=== PATIENT | male | born 1970 | race Two or more races ===

== ENCOUNTER 2016-10-23 16:57 | Emergency (ER) | payer OTHER ==
--- NOTE | 2016-10-23 17:43 | ED Physician Chart ---
Chief Complaint/HPI - Patient Information Date Seen:: 10/23/16 Time Seen:: 17:20 Chief Complaint:: dizziness and headache History of Present Illness:: Patient has had dizziness and headache in the morning for the last 2 months. He is diabetic but does not check his blood sugars in the morning. He went to see his private physician today who noticed that the right pupil was larger than the left and suggested he go to an emergency room and possibly have a CAT scan of the head. Patient denies any focal neurological deficit. 2 days ago patient was working under a car and got dust and oil in his right eye. Allergies:: Allergies Allergy/AdvReac Type Severity Reaction Status Date / Time No Known Allergies Allergy Verified 10/23/16 17:24 Vitals:: Vital Signs - 8 hr 10/23/16 17:25 Temp 98.7 F HR 102 RR 16 BP 154/96 O2 Sat % 98 Historian:: Patient, Family Member Review:: Nurse's Note Reviewed Review of Systems - Review of Systems General/Constitutional: No fever, No chills Skin: No skin lesions Head: Headache Eyes: No loss of vision, No pain, No diplopia, Other ENT: No earache Neck: No neck pain Cardio Vascular: No chest pain, No palpitations Pulmonary: No SOB GI: No nausea, No vomiting, No diarrhea G/U: No dysuria Musculoskeletal: No bone or joint pain, No back pain Endocrine: No polyuria, No polydipsia Psychiatric: No prior psych history, No depression Allergic/Immuno: No urticaria Neurological: No syncope, No focal symptoms Past Medical History - Past Medical History Past Medical History: DM, Dyslipidemia, Other (hypercholesterolemia) Family History: Diabetes Melitus, Other (hypercholesterolemia) Social History: Non Smoker, Alcohol, Other (patient drinks about 12 beers on the weekend) Surgical History: Appendectomy, Hernia Psychiatricy History: None Medication: Reviewed Family Medical History - Family Member Mother Hx Family Diabetes: Yes Physical Exam - Physical Examination General/Constitutional: Well-developed, well-nourished, Alert, No distress Head: Atraumatic Eyes: Lids, conjuctiva normal, EOMI Other Eyes comments:: Right pupil about 1/2 mm greater in diameter than left pupil; both pupils reactive to light, specifically the direct and the consensual light reflexes are present in the right eye. Skin: Nl inspection, No rash, No skin lesions, No ecchymosis, Well hydrated, No lymphadenopathy ENMT: External ears, nose nl, TM canals nl, Nasal exam nl, Lips, teeth, gums nl , Oropharynx nl, Tonsils nl Neck: No nuchal rigidity Respiratory: Nl effort/Exclusion, Clear to Auscultation, No Wheeze/Rhonchi/Rales Cardio Vascular: RRR, No murmur, gallop, rubs, NL S1 S2 GI: No tenderness/rebounding/guarding, No organomegaly, No hernia, Normal BS's, Nondistended Extremities: No tenderness or effusion, Full ROM, normal strength in all extremities Neuro/Psych: No focal deficits Misc: Normal back Labs/Radiology/EKG Results - Radiology Results Results: CAT scan of the head is normal Assessment - Assessment General Assessment: Shows unequal pupils may be long-standing or the result of giving an atropine- like substance in his right eye recently. ED Septic Shock - . Is Septic Shock (SBP<90, OR Lactate>4 mmol\L) present?: No - <6hrs of presentation: Vital Signs: Vital Signs - 8 hr 10/23/16 17:25 Temp 98.7 F HR 102 RR 16 BP 154/96 O2 Sat % 98 Reassessment (Disposition) - Reassessment Reassessment Condition:: Unchanged - Diagnosis Diagnosis:: Unequal pupils (anisora); diabetes - Aftercare/Follow up Instructions Aftercare/Follow-Up Instructions:: Refer to Discharge Instructions - Patient Disposition Discharge/Transfer:: Home Condition at Disposition:: Stable, Unchanged
--- NOTE | 2016-10-24 09:45 | Diagnostic Imaging Report ---
Head CT without intravenous contrast Indication: Asymmetric pupils Comparison: None Technique: Axial images were obtained from the vertex to the skull base without IV contrast. Coronal reconstructions were made. Total DLP: 590 [id number] FINDINGS: Images of the brain obtained without contrast demonstrate no acute hemorrhage. No mass lesions identified. The ventricles and basal cisterns are patent. The watkins-white matter differentiation is preserved. There is no mass effect or midline shift. No skull fractures identified. No soft tissue swelling. The paranasal sinuses are clear. IMPRESSION: No CT evidence of an acute intracranial abnormality. Please cortical clinically, given patient's history. If indicated follow up exam such as MRI may also be obtained.
== END 2016-10-23 18:46 | disposition home or self-care (01) ==
LOC: ER 16:57
DX: H57.02 Anisocoria (principal); E11.9 Type 2 diabetes mellitus without complications; E78.5 Hyperlipidemia, unspecified
CPT/HCPCS: 70450-TC; Z7502